=== PATIENT | male | born 2000 | race American Indian/Alaskan Native ===

== ENCOUNTER 2019-06-07 06:55 | Emergency (ER) | payer SELFPAY ==
[2019-06-07 07:00] VITALS: BP 149/103
[2019-06-07] MEDS ORDERED: DEXAMETHASONE 4 MG TAB PO ONE (07:07)
[2019-06-07] MEDS ORDERED: IPRATROPIUM/ALBUTEROL SULFATE 3 ML AMPUL.NEB IH ONE (07:07)
--- NOTE | 2019-06-07 07:11 | Emergency Department Report ---
HPI - General Chief Complaint: Dyspnea/Respdistress Time Seen by Provider: 06/07/19 07:07 - HPI HPI: 19-year-old male presents to the emergency department with complaint of a 2-week history of shortness of breath with mild wheezing and mild dry cough. He says that his symptoms actually improved with exertion. Denies any fever, chest pain, lower extremity swelling. He has a history of asthma. He is an intermittent smoker. No recent travel or sick contacts at home. No known exposure to anyone positive for Covid 19. He has not taken anything for his symptoms prior to presentation today. No primary care physician. ED Past Medical Hx - Past Medical History Previous Medical History?: Yes Hx Asthma: Yes - Surgical History Past Surgical History?: No - Social History Smoking Status: Never Smoker - Medications Home Medications: Home Medications Medication Instructions Recorded Confirmed Last Taken Type Albuterol INH(or & Nicu Only) 2 puff IH QID PRN #8.5 gram 06/07/19 Unknown Rx [ProAir HFA Inhaler] ED Review of Systems ROS: Stated complaint: JESUS Other details as noted in HPI Comment: All other systems reviewed and negative Constitutional: denies: chills, fever ENT: denies: ear pain, throat pain Respiratory: cough, shortness of breath, wheezing Cardiovascular: denies: chest pain, edema Gastrointestinal: denies: abdominal pain, vomiting Musculoskeletal: denies: back pain, arthralgia Neurological: denies: headache, weakness Physical Exam - Physical Exam Vital Signs: Vital Signs 06/07/19 06:59 Temperature 98.0 F Pulse Rate 93 H Respiratory 18 Rate Blood Pressure 149/103 O2 Sat by Pulse 97 Oximetry Physical Exam: GENERAL: The patient is well-developed well-nourished. HENT: Normocephalic. Atraumatic. Patient has moist mucous membranes. EYES: Extraocular motions are intact. NECK: Supple. Trachea is midline. CHEST/LUNGS: Mild expiratory wheezing. No tachypnea or accessory muscle use. There is no respiratory distress noted. HEART/CARDIOVASCULAR: Regular. There is no tachycardia. There is no murmur. ABDOMEN: There is no abdominal distention. SKIN: Skin is warm and dry. NEURO: The patient is awake, alert, and oriented. The patient is cooperative. Normal speech. MUSCULOSKELETAL: There is no tenderness or deformity. There is no evidence of acute injury. ED Course Vital Signs 06/07/19 06:59 Temperature 98.0 F Pulse Rate 93 H Respiratory 18 Rate Blood Pressure 149/103 O2 Sat by Pulse 97 Oximetry ED Medical Decision Making - Radiology Data interpreted by me: Chest x-ray does not show any acute process. There are no pleural effusions, obvious pneumonia and there is no pneumothorax. - Medical Decision Making Patient presents with a 2-week history of some shortness of breath, mild wheezing and mild cough. On examination he has some mild expiratory wheezing. No signs of any respiratory or acute distress. Chest x-ray does not show any pneumonia, pleural effusions, pneumothorax, or any other acute process. He was given a dose of Decadron here and a DuoNeb breathing treatment with some improvement. He will be discharged home to follow-up with primary care and has been given a prescription for an albuterol inhaler. Vital signs unremarkable including being afebrile and no hypoxia. Critical Care Time: No Critical care attestation.: If time is entered above; I have spent that time in minutes in the direct care of this critically ill patient, excluding procedure time. ED Disposition Clinical Impression: Bronchitis Disposition: DC-01 TO HOME OR SELFCARE Is pt being admited?: No Condition: Stable Instructions: Acute Bronchitis (ED) Additional Instructions: Please follow-up with a primary care physician in the next few days. Return to the emergency department with any worsening of your symptoms or any acute distress. Prescriptions: Albuterol INH(or & Nicu Only) [ProAir HFA Inhaler] 2 puff IH QID PRN #8.5 gram PRN Reason: Shortness Of Breath Referrals: JACKSON LEE DO [Staff Physician] - 3-5 Days [facility] [Provider Group] - 3-5 Days Time of Disposition: 07:45
--- NOTE | 2019-06-07 07:41 | XRay Report ---
CHEST 2 VIEWS INDICATION: Shortness of breath. COMPARISON: None FINDINGS: Support devices: None. Heart: Within normal limits. Lungs/pleura: No acute air space or interstitial disease. No pneumothorax. Additional findings: Moderate to severe levocurvature of the lower thoracic and lumbar spine. IMPRESSION: No acute findings. Scoliosis. Signer Name: Gutierrez Suarez Jr, MD Signed: 06/07/2019 7:37 AM Workstation Name: [id number]
== END 2019-06-07 07:53 | disposition home or self-care (01) ==
LOC: ED 06:55
DX: J40 Bronchitis, not specified as acute or chronic (principal); Z79.899 Other long term (current) drug therapy; Z91.013 Allergy to seafood
CPT/HCPCS: 71046; 94640; 99283; J8540

== ENCOUNTER 2021-08-25 08:53 | Emergency (ER) | payer SELFPAY ==
[2021-08-25 09:01] VITALS: BP 123/87
== END 2021-08-26 10:11 | disposition left against medical advice (07) ==
LOC: ED 08:53
DX: R52 Pain, unspecified (principal); Z53.21 Procedure and treatment not carried out due to patient leaving prior to being seen by health care provider; V89.2XXA Person injured in unspecified motor-vehicle accident, traffic, initial encounter; Y93.89 Activity, other specified; Y92.89 Other specified places as the place of occurrence of the external cause; Y99.8 Other external cause status